=== PATIENT | male | born 1965 | race African-American/Black ===

== ENCOUNTER 2022-02-09 10:36 | Emergency (ER) | payer MEDICAID ==
[~2022-02-09] VITALS: Ht 175.3 cm; Wt 70.0 kg
[2022-02-09] MEDS ORDERED: TETRACAINE 0.5% OPHTH DROPS 4ML RIGHTEYE ONE (12:00)
[2022-02-09] MEDS ORDERED: FLUORESCEIN SODIUM 1MG/STRIP RIGHTEYE ONE (12:00)
[2022-02-09] MEDS ORDERED: LIDOCAINE HCL 1% 20ML VIAL (Pyxis) INJ INFIL ONE (12:00)
[2022-02-09] MEDS ORDERED: TETANUS, DIPHTHERIA, PERTUSSIS VAC/PF 0.5ML (>10YR OLD) IM ONE (12:00)
[2022-02-09] MEDS ORDERED: FENTANYL CITRATE/PF 50MCG/ML 2ML VIAL IM ONE (12:15)
[2022-02-09] MEDS ORDERED: TRAM-529 MT (16:21)
[2022-02-09] MEDS ORDERED: [UNRECOGNIZED DRUG - CODE] OP (16:21)
[2022-02-09 16:49] VITALS: BP 125/78
== END 2022-02-09 16:30 | disposition home or self-care (01) ==
LOC: ER 10:36
DX: S02.2XXA Fracture of nasal bones, initial encounter for closed fracture (principal); S01.111A Laceration without foreign body of right eyelid and periocular area, initial encounter; F12.10 Cannabis abuse, uncomplicated; Y04.0XXA Assault by unarmed brawl or fight, initial encounter; Y93.89 Activity, other specified; Y92.89 Other specified places as the place of occurrence of the external cause; Y99.8 Other external cause status
CPT/HCPCS: 12013; 70486; 90471; 90715; 96372; 99284; J3010; J3490

== ENCOUNTER 2022-03-18 13:00 | Emergency (ER) | payer MEDICAID ==
[~2022-03-18] VITALS: Ht 170.2 cm; Wt 68.0 kg
[~2022-03-18 13:00] MED LIST: TRAM-529 MT; [UNRECOGNIZED DRUG - CODE] OP
[2022-03-18] MEDS ORDERED: TETRACAINE 0.5% OPHTH DROPS 4ML BOTHEYE ONE (13:15)
[2022-03-18] MEDS ORDERED: FLUORESCEIN SODIUM 1MG/STRIP RIGHTEYE ONE (13:15)
[2022-03-18] MEDS ORDERED: ACETAMINOPHEN 325MG TABLET PO ONE (15:00)
[2022-03-18 15:32] VITALS: BP 112/55
== END 2022-03-18 15:32 | disposition home or self-care (01) ==
LOC: ER 13:00
DX: H57.11 Ocular pain, right eye (principal)
CPT/HCPCS: 99283